=== PATIENT | male | born 1995 | race Asian ===

== ENCOUNTER 2020-08-31 09:26 | Emergency (ER) | payer MEDICAID ==
[~2020-08-31] VITALS: Ht 165.1 cm; Wt 150.0 kg
[2020-08-31] MEDS ORDERED: LORAZEPAM 2MG/ML CPJ IM ONE (12:00)
[2020-08-31] MEDS ORDERED: DIPHENHYDRAMINE 50MG/ML VIAL IM ONE (12:00)
[2020-08-31 12:20] LABS: BASOPHILS % 0.4 % (0.0-2.0); EOSINOPHILS % 0.1 % (0.0-5.0); HEMATOCRIT. 51.7 % (42.0-52.0); HEMOGLOBIN. 17.4 g/dL (14.0-18.0); LYMPHOCYTES % 13.8 % (20.0-50.0); MEAN CORPUSCULAR HEMOGLOBIN 29.1 pg (28.0-32.0); MEAN CORPUSCULAR VOLUME 86.7 fL (80.0-94.0); MEAN PLATELET VOLUME 9.4 fl (7.4-10.4); MONOCYTES % 5.8 % (2.0-8.0); NEUTROPHILS % 79.9 % (40.0-76.0); PLATELET 265 x1000/uL (130-400); RED BLOOD CELL COUNT 5.97 mill/uL (4.7-6.1); RED CELL DISTRIBUTION WIDTH 13.3 % (11.6-14.6)
[2020-08-31 12:31] LABS: CHLORIDE 102 mEq/L (98-107)
[2020-08-31 18:27] LABS: CLARITY URINE CLEAR (CLEAR); COLOR URINE YELLOW (YELLOW); KETONES URINE 3+ (NEGATIVE); LEUKOCYTE ESTERASE URINE NEGATIVE (NEGATIVE); NITRITE URINE NEGATIVE (NEGATIVE); OCCULT BLOOD URINE NEGATIVE (NEGATIVE); PH URINE 6.5 (4.5-8.0); PROTEIN URINE 2+ (NEGATIVE); SPECIFIC GRAVITY URINE 1.029 (1.005-1.030)
[2020-08-31 18:44] LABS: *AMPHETAMINES SCREEN URINE NEGATIVE (NEGATIVE); *BARBITURATES SCREEN URINE NEGATIVE (NEGATIVE); *BENZODIAZEPINES SCREEN URINE PRESUMTIVE POSITIVE (NEGATIVE); *COCAINE SCREEN URINE NEGATIVE (NEGATIVE)
[2020-08-31 18:45] LABS: CANNABINOID URINE SCREEN PRESUMTIVE POSITIVE (NEGATIVE); METHADONE URINE SCREEN NEGATIVE (NEGATIVE); OPIATES URINE SCREEN NEGATIVE (NEGATIVE); PHENCYCLIDINE URINE SCREEN NEGATIVE (NEGATIVE)
[2020-08-31] MEDS ORDERED: ZIPRASIDONE MESYLATE 20MG/VIAL IM NR (22:45)
[2020-09-01] MEDS ORDERED: OLANZAPINE 10 MG/VIAL IM ONE (00:15)
[2020-09-01 08:00] VITALS: BP 126/70
== END 2020-09-01 11:05 | disposition home or self-care (01) ==
LOC: ER 09:46
DX: R46.2 Strange and inexplicable behavior (principal); R45.1 Restlessness and agitation; R00.0 Tachycardia, unspecified; Z73.6 Limitation of activities due to disability; Z63.79 Other stressful life events affecting family and household; Z78.1 Physical restraint status
CPT/HCPCS: 36415; 80048; 80305; 80307; 80320; 80329; 81003; 85025; 93005; 96372; 99285; J1200; J2060; J3486; J3490; G0480